=== PATIENT | female | born 1940 | race Caucasian/White ===

== ENCOUNTER 2022-12-16 22:09 | Observation (INO) | payer MEDICARE, OTHER ==
[2022-12-16] MEDS: Sodium Chloride 0.9% 1,000 ML IV ONE (22:30)
[2022-12-16] MEDS: Albuterol/Ipratropium 3.0-0.5 MG/3 ML Neb Soln NEB ONE (23:09)
[2022-12-16 23:32] LABS: CHLORIDE,CL 101 mmol/L (98-107); SODIUM,NA 135 mmol/L (136-145)
[2022-12-16 23:40] LABS: ANION GAP 10.3 mmol/L (5-15); ESTIMATED GFR 37 mL/min (>=60)
[2022-12-16] MEDS: Aspirin 81 MG Tab.Chew PO ONE (23:45)
[2022-12-16 23:51] LABS: CORONAVIRUS COVID-19 NAA NEGATIVE (NEGATIVE)
[2022-12-16 23:52] LABS: RESPIRATORY SYNCYTIAL VIR NAA NEGATIVE (NEGATIVE)
[2022-12-17] MEDS: Iopamidol 755 Mg/ML 100 ML Bottle IVPUSH ONE (00:57)
[2022-12-17] MEDS: Nitroglycerin/D5W 25 MG/250 ML BOTTLE IV SCH (00:58)
[2022-12-17] MEDS: Sodium Chloride 0.9% 1,000 ML IV ONE (01:00)
[2022-12-17] MEDS: cefTRIAXone 2 GM Vial IVPUSH SCH (02:27)
[2022-12-17] MEDS: LORazepam 2 MG/ML SDV IVPUSH PRN (02:58)
[2022-12-17] MEDS: Metoprolol Tartrate 5 MG/5 ML SDV IVPUSH ONE ×2 (03:10→04:30)
[2022-12-17] MEDS: Heparin Sodium 5,000 Units/ML Vial IVPUSH ONE (04:27)
[2022-12-17] MEDS: Albuterol/Ipratropium 3.0-0.5 MG/3 ML Neb Soln NEB ONE ×2 (04:29→06:42)
[2022-12-17] MEDS: Heparin Sodium/0.45% NaCl 25,000 UNITS/500 ML BAG IV SCH (04:39)
[2022-12-17] MEDS: methylPREDNISolone Sodium Succinate 40 MG/1 ML SDV IVPUSH ONE (07:53)
[2022-12-17] MEDS: Doxycycline Monohydrate 100 MG Cap PO SCH (08:50)
[2022-12-17] MEDS ORDERED: Ondansetron 4 MG Tab.DIS PO PRN (09:01)
[2022-12-17] MEDS: Albuterol/Ipratropium 3.0-0.5 MG/3 ML Neb Soln NEB SCH (10:31)
[2022-12-17 17:53] VITALS: BP 157/77; PULSE 90
[2022-12-17] MEDS ORDERED: cefTRIAXone 2 GM Vial IVPUSH SCH (21:00)
== END 2022-12-17 14:20 | disposition short-term general hospital (02) ==
LOC: VM.ED 22:09 → VM.MS 12-17 07:07 → INTOOBSV 12-17 07:07
PROVIDERS: ADMIT Physician Assistant; ATTEND Physician Assistant
DX: R06.02 Shortness of breath (principal); Z79.899 Other long term (current) drug therapy; Z79.82 Long term (current) use of aspirin; Z20.822 Contact with and (suspected) exposure to COVID-19
CPT/HCPCS: 0241U; 36415; 71045; 71275; 80053; 83605; 84484; 85025; 85379; 85610; 85730; 87040; 93005; 94640; 94660; 96361; 96365; 96366; 96367; 96375; 96376; 99285-25; A9270-GY; G0378; J0696; J1644; J2060; J2920; J3490; J7030; J7620-GY; Q9967

== ENCOUNTER 2024-05-08 16:54 | Emergency (ER) | payer MEDICARE, OTHER ==
[2024-05-08] MEDS ORDERED: Sodium Chloride 0.9% 10 ML Syringe FLUSH PRN (17:10)
[2024-05-08] MEDS: Aspirin 81 MG Tab.Chew PO ONE (17:18)
[2024-05-08 17:26] LABS: BASOPHILS ABSOLUTE AUTO 0.1 x10^3/uL (0.0-0.2); BASOPHILS PERCENT AUTO 0.6 % (0.2-1.2); EOSINOPHILS ABSOLUTE AUTO 0.2 x10^3/uL (0.0-0.5); EOSINOPHILS PERCENT AUTO 2.9 % (0.0-4.0); HEMATOCRIT 38.3 % (33.0-47.0); HEMOGLOBIN 12.9 g/dL (12.0-16.0); IMMATURE GRAN ABSOLUTE AUTO 0.02 x10^3/uL (0.00-0.07); LYMPHOCYTES ABSOLUTE AUTO 3.2 x10^3/uL (1.0-4.8); MEAN CORPUSCULAR HEMOGLOBIN 28.7 pg (26.0-32.0); MEAN CORPUSCULAR HGB CONC 33.7 g/dL (32.0-36.0); MEAN CORPUSCULAR VOLUME 85.1 fL (78.0-93.0); MONOCYTES ABSOLUTE AUTO 0.8 x10^3/uL (0.0-0.8); MONOCYTES PERCENT AUTO 9.6 % (2.0-11.0); NEUTROPHILS ABSOLUTE AUTO 3.9 x10^3/uL (1.8-7.7); NEUTROPHILS PERCENT AUTO 47.7 % (50.0-80.0); PLATELET COUNT,PLT 235 x10^3/uL (130-400); WHITE BLOOD CELL COUNT,WBC 8.2 x10^3/uL (4.0-10.0)
[2024-05-08 17:54] LABS: A/G RATIO 0.95; ALANINE AMINOTRANSFERASE,ALT 22 U/L (14-59); ALBUMIN 3.5 g/dL (3.4-5.0); ALKALINE PHOSPHATASE 104 U/L (46-116); ASPARTATE AMNIOTRANSFERASE,AST 24 U/L (15-37); BILIRUBIN TOTAL 0.4 mg/dL (0.2-1.0); BLOOD UREA NITROGEN,BUN 32 mg/dL (7-18); CALCIUM 9.2 mg/dL (8.5-10.1); CARBON DIOXIDE,CO2 28 mmol/L (21-32); CHLORIDE,CL 101 mmol/L (98-107); CREATININE 1.4 mg/dL (0.55-1.02); GLUCOSE RANDOM 98 mg/dL (70-99); MAGNESIUM 2.1 mg/dL (1.8-2.4); POTASSIUM,K 4.5 mmol/L (3.5-5.1); PRO B-TYPE NATRIUR PEPT,BNPPRO 152 pg/mL (<=450); PROTEIN TOTAL,TP 7.2 g/dL (6.4-8.2); SODIUM,NA 138 mmol/L (136-145)
[2024-05-08 17:55] LABS: ANION GAP 13.5 mmol/L (5-15); ESTIMATED GFR 37 mL/min (>=60)
[2024-05-08 18:03] LABS: PROTHROMBIN TIME 10.4 SEC (8.9-11.5)
[2024-05-08 18:29] VITALS: BP 189/89; PULSE 78
== END 2024-05-08 18:10 | disposition home or self-care (01) ==
LOC: VM.ED 16:54
DX: R07.89 Other chest pain (principal); I10 Essential (primary) hypertension; I25.2 Old myocardial infarction; E78.00 Pure hypercholesterolemia, unspecified; I25.10 Atherosclerotic heart disease of native coronary artery without angina pectoris; J44.9 Chronic obstructive pulmonary disease, unspecified; E11.9 Type 2 diabetes mellitus without complications; E03.9 Hypothyroidism, unspecified; K21.9 Gastro-esophageal reflux disease without esophagitis; Z88.8 Allergy status to other drugs, medicaments and biological substances; Z91.040 Latex allergy status; Z88.1 Allergy status to other antibiotic agents; Z91.041 Radiographic dye allergy status; Z91.018 Allergy to other foods; Z79.82 Long term (current) use of aspirin; Z79.51 Long term (current) use of inhaled steroids; Z79.890 Hormone replacement therapy; Z79.899 Other long term (current) drug therapy
CPT/HCPCS: 71045; 80053; 83735; 83880; 84484; 85025; 85610; 93005; 99285; A9270; 93010; 99284

== ENCOUNTER 2024-07-09 10:49 | Emergency (ER) | payer MEDICARE, OTHER ==
[2024-07-09] MEDS ORDERED: Sodium Chloride 0.9% 10 ML Syringe FLUSH PRN (11:17)
[2024-07-09 11:24] LABS: BASOPHILS PERCENT AUTO 0.4 % (0.2-1.2); EOSINOPHILS ABSOLUTE AUTO 0.2 x10^3/uL (0.0-0.5); EOSINOPHILS PERCENT AUTO 2.4 % (0.0-4.0); HEMATOCRIT 38.9 % (33.0-47.0); HEMOGLOBIN 13.1 g/dL (12.0-16.0); IMMATURE GRAN ABSOLUTE AUTO 0.02 x10^3/uL (0.00-0.07); LYMPHOCYTES ABSOLUTE AUTO 1.7 x10^3/uL (1.0-4.8); LYMPHOCYTES PERCENT AUTO 17.5 % (25.0-50.0); MEAN CORPUSCULAR HEMOGLOBIN 28.8 pg (26.0-32.0); MEAN CORPUSCULAR HGB CONC 33.7 g/dL (32.0-36.0); MEAN CORPUSCULAR VOLUME 85.5 fL (78.0-93.0); MONOCYTES ABSOLUTE AUTO 0.7 x10^3/uL (0.0-0.8); MONOCYTES PERCENT AUTO 7.3 % (2.0-11.0); NEUTROPHILS ABSOLUTE AUTO 7.1 x10^3/uL (1.8-7.7); NEUTROPHILS PERCENT AUTO 72.2 % (50.0-80.0); PLATELET COUNT,PLT 266 x10^3/uL (130-400); RED BLOOD CELL COUNT 4.55 x10^6/uL (4.00-5.50); WHITE BLOOD CELL COUNT,WBC 9.9 x10^3/uL (4.0-10.0)
[2024-07-09 11:41] LABS: LACTIC ACID 1.6 mmol/L (0.4-2.0)
[2024-07-09 11:46] LABS: A/G RATIO 0.89; ALANINE AMINOTRANSFERASE,ALT 14 U/L (14-59); ALBUMIN 3.2 g/dL (3.4-5.0); ALKALINE PHOSPHATASE 103 U/L (46-116); ANION GAP 11.7 mmol/L (5-15); ASPARTATE AMNIOTRANSFERASE,AST 24 U/L (15-37); BILIRUBIN TOTAL 0.4 mg/dL (0.2-1.0); BLOOD UREA NITROGEN,BUN 24 mg/dL (7-18); C-REACTIVE PROTEIN < 0.50 mg/dL (<=0.50); CALCIUM 8.9 mg/dL (8.5-10.1); CARBON DIOXIDE,CO2 29 mmol/L (21-32); CHLORIDE,CL 102 mmol/L (98-107); CREATININE 1.3 mg/dL (0.55-1.02); ESTIMATED GFR 40 mL/min (>=60); GLUCOSE RANDOM 176 mg/dL (70-99); POTASSIUM,K 4.7 mmol/L (3.5-5.1); PRO B-TYPE NATRIUR PEPT,BNPPRO 125 pg/mL (<=450); PROTEIN TOTAL,TP 6.8 g/dL (6.4-8.2); SODIUM,NA 138 mmol/L (136-145)
[2024-07-09 11:49] LABS: INR 1.2 (0.9-1.1); PROTHROMBIN TIME 11.6 SEC (8.9-11.5); PTT,PARTIAL THROMBOPLSTIN TIME 27.4 SEC (21.9-33.8)
[2024-07-09 12:17] LABS: CORONAVIRUS COVID-19 NAA NEGATIVE (NEGATIVE); INFLUENZA A NAA NEGATIVE (NEGATIVE); INFLUENZA B NAA NEGATIVE (NEGATIVE); RESPIRATORY SYNCYTIAL VIR NAA NEGATIVE (NEGATIVE)
[2024-07-09] MEDS: Nitroglycerin 0.4 MG Tab.SL SL ONE (12:17)
[2024-07-09] MEDS: Furosemide 40 MG/4 ML VIAL IV ONE (12:18)
[2024-07-09] MEDS: Iopamidol 755 Mg/ML 100 ML Bottle IVPUSH ONE (14:30)
[2024-07-09] MEDS ORDERED: methylPREDNISolone Sodium Succinate 125 MG/2 ML SDV IV ONE (15:04)
[2024-07-09] MEDS: cefTRIAXone 1 GM Vial IVPUSH ONE (15:30)
[2024-07-09] MEDS: Azithromycin 250 MG Tab PO ONE (15:57)
[2024-07-09] MEDS: Take Home: Azithromycin 250 MG, 2 Tab Pack PO ONE (16:00)
[2024-07-09] MEDS: Take Home: Cefuroxime 250 MG Tab, 2 Tab Pack PO ONE (16:01)
[2024-07-09 16:28] VITALS: BP 173/67; PULSE 74
== END 2024-07-09 16:20 | disposition home or self-care (01) ==
LOC: VM.ED 10:49
DX: J18.9 Pneumonia, unspecified organism (principal); I10 Essential (primary) hypertension; I25.10 Atherosclerotic heart disease of native coronary artery without angina pectoris; I25.2 Old myocardial infarction; E78.00 Pure hypercholesterolemia, unspecified; J44.9 Chronic obstructive pulmonary disease, unspecified; K21.9 Gastro-esophageal reflux disease without esophagitis; E11.9 Type 2 diabetes mellitus without complications; E03.9 Hypothyroidism, unspecified; Z79.82 Long term (current) use of aspirin; Z79.890 Hormone replacement therapy; Z79.899 Other long term (current) drug therapy; Z88.8 Allergy status to other drugs, medicaments and biological substances; Z91.040 Latex allergy status; Z91.048 Other nonmedicinal substance allergy status
CPT/HCPCS: 0241U; 36415; 71045; 71275; 80053; 83605; 83735; 83880; 84484; 85025; 85379; 85610; 85730; 86140; 96374; 96375; 99285; A9270; J0696; J1940; Q9967; 93010; 99284

== ENCOUNTER 2024-08-15 07:58 | Day surgery (SDC) | payer MEDICARE, OTHER ==
[~2024-08-15 07:58] MED LIST: Brimonidine 0.2% Ophth Soln 5 ML Bottle ONE; Dexamethasone/Neomycin/Polymyxin B Ophth Oint 3.5 GM Tube ONE; Lidocaine 1% 2 ML ONE; Phenyleprhine/Ketorolac 4 ML Vial ONE; Povidone-Iodine 5% Sterile Ophth Soln 30 ML Bottle ONE; Proparacaine 0.5% Ophth Soln 15 ML Bottle ONE; Sodium Chloride 0.9% 10 ML Syringe FLUSH PRN
[2024-08-15] MEDS: Phenylephrine 2.5% Ophth Soln 2 ML Bot EYELF ONE ×3 (08:08→09:26)
[2024-08-15] MEDS: Tropicamide 1% Ophth Soln 3 ML Bottle EYELF ONE ×2 (08:09→08:26)
[2024-08-15] MEDS: Cyclopentolate 1% Opth Soln 2 ML Bottle EYELF ONE ×2 (08:10→08:26)
[2024-08-15] MEDS ORDERED: Midazolam 1 MG/ML 2 ML SDV ONE (08:26)
[2024-08-15] MEDS: Moxifloxacin 0.5% Ophth Soln 3 ML Bottle EYELF ONE ×2 (08:27→09:26)
[2024-08-15] MEDS: Chondroitin Sulfate/Hyaluronate Sodium Ophth Inj 0.5 ML Syringe IOCULAR ONE (09:29)
[2024-08-15] MEDS: Lidocaine 1% PF 2 ML SDV INFILT ONE (09:29)
[2024-08-15] MEDS: Phenyleprhine/Ketorolac 4 ML Vial IO ONE ×2 (09:29)
[2024-08-15] MEDS: Balanced Salt Solution Ophth Irrig 500 ML Bottle IOCULAR ONE (09:29)
[2024-08-15] MEDS: Brimonidine 0.2% Ophth Soln 5 ML Bottle EYELF ONE (09:29)
[2024-08-15] MEDS: Dexamethasone/Neomycin/Polymyxin B Ophth Oint 3.5 GM Tube EYELF ONE (09:29)
[2024-08-15] MEDS: acetaZOLAMIDE 500 MG Cap.ER PO ONE (10:06)
[2024-08-15 10:28] VITALS: BP 139/58; PULSE 70
== END 2024-08-15 10:46 | disposition home or self-care (01) ==
LOC: VM.SDS 07:58
PROVIDERS: ATTEND Ophthalmology
DX: E11.36 Type 2 diabetes mellitus with diabetic cataract (principal); H25.812 Combined forms of age-related cataract, left eye; I25.10 Atherosclerotic heart disease of native coronary artery without angina pectoris; I11.0 Hypertensive heart disease with heart failure; I50.32 Chronic diastolic (congestive) heart failure; K21.9 Gastro-esophageal reflux disease without esophagitis; J42 Unspecified chronic bronchitis; E03.4 Atrophy of thyroid (acquired); J18.9 Pneumonia, unspecified organism; A31.9 Mycobacterial infection, unspecified; Z79.899 Other long term (current) drug therapy; Z79.82 Long term (current) use of aspirin; Z88.8 Allergy status to other drugs, medicaments and biological substances; Z91.040 Latex allergy status; Z79.890 Hormone replacement therapy
CPT/HCPCS: 00142; A9270-GY; J1097; J2250; J3490